=== PATIENT | male | born 1970 | race Caucasian/White ===

== ENCOUNTER 2017-03-27 07:20 | Day surgery (SDC) | payer BC ==
[~2017-03-27] VITALS: Ht 182.9 cm; Wt 136.0 kg
[~2017-03-27 07:20] MED LIST: ZYRTEC10 M3 PO
== END 2017-03-27 08:40 | disposition home or self-care (01) ==
LOC: SDC 07:20
DX: K43.9 Ventral hernia without obstruction or gangrene (principal); Z53.9 Procedure and treatment not carried out, unspecified reason
CPT/HCPCS: J0131

== ENCOUNTER 2017-03-29 06:22 | Day surgery (SDC) | payer BC ==
[~2017-03-29] VITALS: Ht 182.9 cm; Wt 136.3 kg
[2017-03-29 06:57] VITALS: BP 119/79
[2017-03-29] MEDS ORDERED: ULTRAM50 MG PO (10:41)
[2017-03-29 12:34] VITALS: BP 117/64
[2017-03-29 13:20] VITALS: BP 141/81
[2017-03-29 13:56] VITALS: BP 133/83
== END 2017-03-29 14:00 | disposition home or self-care (01) ==
LOC: SDC 06:22
PROC: 0WUF4JZ Supplement Abdominal Wall with Synthetic Substitute, Percutaneous Endoscopic Approach (ICD-10-PCS; principal; 2017-03-29)
DX: K42.0 Umbilical hernia with obstruction, without gangrene (principal); E66.9 Obesity, unspecified; Z68.41 Body mass index [BMI] 40.0-44.9, adult; Z85.828 Personal history of other malignant neoplasm of skin; Z88.0 Allergy status to penicillin
CPT/HCPCS: C1781; J0330; J0690; J1100; J1170; J2001; J2405; J2710; J3010; J3475; Q0175